=== PATIENT | male | born 1945 ===

== ENCOUNTER 2025-07-20 07:21 | Outpatient (AMB) | payer OTHER, SELFPAY ==
--- NOTE | 2025-07-20 07:36 | A.OFFVIS_ITS ---
Vital Signs 07/20/25 07:52 Height 6 ft 4 in Weight 180 lb 1.883 oz BMI 21.9 BP 115/62 Blood Pressure Location Lt brachial Position Sitting Pulse 69 Pulse Source Pulse Oximeter Pulse Oximetry (%) 98 Oxygen Delivery Method Room Air Intake Visit Reasons: giant cell arthritis/URGENT NEW PT/ MD APPROVED Intake Note: New patient presents for Giant cell arthritis. Patient c/o of bilateral leg pain and foot. Patient stated he has been feeling this pain all summer. Patient is taking Prednisone. Patient also stated his legs swell up when standing up. 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 No associated headache but did have sensitivity, so much so that he could not shave. No difficulty swallowing. No jaw claudication. 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 He had blood work done there and was told that he likely has GCA and was started on prednisone and had a temporal artery biopsy - which was negative. The hospital visit was complicated by left leg DVT, started on eliquis for that. Since starting the prednisone, there has been no change in his vision. No jaw claudication, no dysphagia PFSH Family History (Updated 07/20/25 @ 07:51 by LUCA Stevens) Mother Cancer Social History (Updated 07/20/25 @ 07:52 by LUCA Stevens) Household Members: Family Housing: House Alcohol intake: current Patient Tobacco Use Status: Former Tobacco user Review of Systems Narrative Review of Systems Constitutional: Denies fever, chills, weight loss ENT: Denies vision changes, eye pain or eye redness, dental caries, dry mouth GI: Denies nausea, vomiting, diarrhea, abdominal pain, change in BM Pulm: Denies SOB, HENDRICKS, hemoptysis, wheezing Cards: Denies chest pain, palpitations Skin: Denies Raynaud's, rash, nail changes, photosensitivity, [employer]: Denies headaches, weakness, paresthesias, recurrent falls MSK: as per HPI All other systems reviewed and are unremarkable except noted above Physical Exam Exam Exam: Vital signs reviewed Physical Examination CONSTITUITIONAL Patient alert and cooperative. Well appearing and in no apparent painful distress HEENT Conjunctiva and sclera clear. No lymphadenopathy. Bilateral temporal artery pulses felt MSK Hands * Right Hand: Able to make a fist. No swelling or tenderness to palpation of the MCPs, PIPs or DIPs * Left Hand: Able to make a fist. No swelling or tenderness to palpation of the MCPs, PIPs or DIPs. * Herbedens nodes noted bilaterally Wrists * Right Wrist: Full ROM to flexion and extension. No swelling or TTP * Left Wrist: Full ROM to flexion and extension. No swelling or TTP Elbows * Right Elbow: Full ROM. No swelling or TTP. No TTP of the medial epicondyle. No TTP of the lateral epicondyle * Left Elbow: Full ROM. No swelling or TTP. No TTP of the medial epicondyle. No TTP of the lateral epicondyle Shoulders * Right shoulder: Full ROM. No swelling noted. No TTP of the AC joint. No TTP of the subacromial bursa. No TTP of the posterior shoulder * Left shoulder: Full ROM. No swelling noted. No TTP of the AC joint. No TTP of the subacromial bursa. No TTP of the posterior shoulder Knees * Right knee: Full ROM. No swelling noted. No TTP of the knee joint line. No TTP of pes anserine bursa * Left knee: Full ROM. No swelling noted. No TTP of the knee joint line. No TTP of pes anserine bursa. * Crepitations felt bilaterally Ankles * Right ankle: Good ankle dorsiflexion and plantar flexion. No swelling. No TTP of the ankle joint * Left ankle: Good ankle dorsiflexion and plantar flexion. No swelling. No TTP of the ankle joint Feet * Right foot: Negative squeeze test * Left foot: Negative squeeze test Tender points? * No tenderness to palpation of the bilateral trapezius, supraspinatus, anterior costochondral junctions, bilateral suboccipital muscle insertions Vital Signs: Last Vital Signs Pulse 69 07/20/25 07:52 BP 115/62 07/20/25 07:52 Pulse Ox 98 07/20/25 07:52 Oxygen Delivery Method Room Air 07/20/25 07:52 BMI result Body Mass Index 21.9 Results Reviewed Results Reviewed: 06/21/2025 [facility] WBC 6.9 Hb 13.2 Plt 242 BUN 20 Cr 0.73 eGFR 94 AST 11 ALT 8 ESR 19 CRP 1.1 Left TA biopsy 06/23/2025 - muscular artery with mild acid lot of sclerosis - no evidence of temporal (cranial or giant cell) arteritis Assessment & Plan Assessment & Plan (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 Labs done at the time of admission showed normal ESR and CRP. And his temporal artery biopsy is normal. At this time I do not believe that he has temporal arteritis and we will start taper his prednisone Plan - Prednisone: 40mg x 10 days then 30mg x 10 days then 20mg x 10 days then 10mg x 10 days then 5mg x 10 days then stop - Contact Dr. Arreguin [phone], ophthalmology - Patient planning to go to [place] for the winter in 2 weeks. We will print labs for him to get done at a [facility] in 2 months - Labs in 2 months: CBC, CMP, ESR, CRP Plan I spent 60 minutes reviewing the record and labs, taking a history, examining the patient, discussing the treatment plan, contacting opthalmology and documenting in the medical record Orders: Orders Complete Blood Count Auto Diff Today Z79.899 - Other [facility] (current) drug therapy Comprehensive Met. Panel Today Z79.899 - Other termite treater (current) drug therapy C Reactive Protein Today Z79.899 - Other [facility]ent[facility] (current) drug therapy Erythrocyte Sedimentation Rate Today Z79.899 - Other penitentiary (current) drug therapy Medications: New prednisone 40 mg (2 x 20 mg) PO DAILY 30 tabs 0RF M31.6 - Other giant cell arteritis prednisone 40mg (4 tablets) x 10 days then 30mg (3 tablets) x 10 days then 20mg (2 t ablets) x 10 days then 10mg (1 tablet) x 10 days then 5mg (0.5 tablets) x 10 days then stop 10 mg PO DAILY 105 tabs 0RF M31.6 - Other giant cell arteritis Coding Level of Care Code New Pt Level 5 (43303) Complex EM visit Add On G2211 Diagnoses Giant cell arteritis M31.6
[2025-07-20 07:52] VITALS: BP 115/62; PULSE 69; O2SAT 98; BMI 21.9
== END 2025-07-20 08:37 | disposition home or self-care (01) ==
PROVIDERS: PCP Nurse Practitioner Family; Visit Provider Student in an Organized Health Care Education/Training Program
DX: M31.6 Other giant cell arteritis (principal)
CPT/HCPCS: 99205